=== PATIENT | female | born 1980 | race Hispanic/Latino ===

== ENCOUNTER 2018-10-05 07:04 | Day surgery (SDC) | payer BC ==
[2018-09-20 13:36] VITALS: BMI 32.8
[~2018-10-05 07:04] MED LIST: Bupivacaine HCl 0.5% PF (30 ml) Inj ONE; Iohexol 240 (50 ml) ONE; Lidocaine 2% MPF (5 ml) Inj ONE; MethylPREDNISolone Depo 40 mg/ml Inj ONE; ceFAZolin 1 gm in NS 2 GM/200 ML BAG IVPB ONE
[2018-10-05] MEDS ORDERED: Midazolam 2 MG/2 ML VIAL ONE (08:30)
[2018-10-05] MEDS ORDERED: Propofol 10 mg/ml Inj (20 ML) ONE ×2 (08:30→08:59)
[2018-10-05] MEDS ORDERED: Lidocaine 2% MPF (5 ml) Inj ONE ×2 (08:31)
[2018-10-05] MEDS ORDERED: MethylPREDNISolone Depo 40 mg/ml Inj ONE ×3 (08:32→09:12)
[2018-10-05] MEDS ORDERED: Lactated Ringer's 1,000 ML IV ONE (09:17)
[2018-10-05] MEDS ORDERED: Oxycodone/Acetaminophen 5/325 mg Tab ONE (10:08)
[2018-10-05] MEDS ORDERED: Oxycodone/Acetaminophen 5/325 mg Tab PO STA (10:13)
[2018-10-05 11:01] VITALS: RESP 18
[2018-10-05 11:55] VITALS: BP 105/53; PULSE 83; TEMP 97.7; O2SAT 99
--- NOTE | 2018-10-05 13:26 | RAD ---
Date of service: 10/05/2018 PROCEDURE: Intraoperative Fluoroscopy. HISTORY: Right HIP LABRAL TEAR, right GREAT TROCHANTER BURSITIS FINDINGS: Fluoroscopic assistance was provided for right hip and right greater trochanteric injection. Please refer to the operative report from TED Mathews, , MD GER.
--- NOTE | 2018-10-05 18:38 | PCM.SURG1 ---
Surgeon's Initial Post Op Note - Surgeon's Notes Surgeon: Landry Jorge MD Electronics Teacher: None Type of Anesthesia: IV Sedation, Local Pre-Operative Diagnosis: A. Right hip: #1 labral tear. #2 synovitis. #3 Greater Trochanteric Bursitis. #4 Abductor Tendonopathy. . B. Right knee: #1 synovitis. #2 hypertrophic symptomatic medial plica bands. #3 hypertrophic, inflamed infrapatellar fat pad. #4 medial meniscal tear (consistently on physi daysi exam, not seen on MRI) Operative Findings: A. Right hip: #1 labral tear. #2 synovitis. #3 Greater Trochanteric Bursitis. #4 Abductor Tendonopathy. . B. Right knee: #1 synovitis. #2 hypertrophic symptomatic medial plica bands. #3 hypertrophic, inflamed infrapatellar fat pad. #4 medial meniscal tear (consistently on physical exam, not seen on MRI) Post-Operative Diagnosis: A. Right hip: #1 labral tear. #2 synovitis. #3 Greater Trochanteric Bursitis. #4 Abductor Tendonopathy. . B. Right knee: #1 synovitis. #2 hypertrophic symptomatic medial plica bands. #3 hypertrophic, inflamed infrapatellar fat pad. #4 medial meniscal tear (consistently on physical exam, not seen on MRI) Operation Performed: A. Right hip : #1 Flouroscoic guided intra-articular injection. #2 Greater trochanteric bursitis injection. . B. Right knee: #1 Lateral compartment intra-articular injection. #2 Medial compartment intra- articular injection Specimen/Specimens Removed: Specimen= none. Complications= none. Implants= none. Injections= Each injection consisted of 5cc total volume= 2cc 2% Lidocaine w/o epi preservative free, 2cc 0.5% Marcaine w/o epi presevative free, 1cc Depomedrol preservatice free Estimated Blood Loss: EBL {In ML}: 1 Blood Products Given: N/A Drains Used: No Drains Post-Op Condition: Good Date of Surgery/Procedure: 10/05/18 Time of Surgery/Procedure: 09:00
--- NOTE | 2018-11-09 12:21 | OP ---
PROCEDURE DATE: 10/05/2018 PREOPERATIVE DIAGNOSES: PART A: Right hip: 1. Labral tear. 2. Synovitis. 3. Greater trochanteric bursitis. 4. Abductor tendinopathy. PART B: Right knee: 1. Synovitis. 2. Hypertrophic symptomatic medial plica bands. 3. Hypertrophic inflamed infrapatellar fat pad. 4. Medial meniscal tear. POSTOPERATIVE DIAGNOSES: PART A: Right hip: 1. Labral tear. 2. Synovitis. 3. Greater trochanteric bursitis. 4. Abductor tendinopathy. PAR B: Right knee: 1. Synovitis. 2. Hypertrophic symptomatic medial plica bands. 3. Hypertrophic inflamed infrapatellar fat pad. 4. Medial meniscal tear. PROCEDURE: Part A: Right hip 1. Fluoroscopic guided intraarticular cortisone mixture injection. 2. Fluoroscopic guided greater trochanteric bursa/abductor tendon, cortisone mixture injection. PART B: 1. Right knee lateral compartment intraarticular cortisone mixture injection under sedation. 2. Medial compartment intraarticular injection under sedation. SURGEON: Landry Jorge MD. CASH MANAGER: None. ANESTHESIA: IV sedation and local anesthetic placed at right hip by surgeon. SPECIMENS: None. COMPLICATIONS: None. IMPLANTS: None. ESTIMATED BLOOD LOSS: 1 mL. DRAINS: None. DISPOSITION: The patient was awakened from sedation and transferred to PACU in stable condition. INJECTION CONTENTS: Each injection administered, four in total, two for right hip and two for right knee consisted of 5 mL total volume = 2 mL 2% lidocaine without epinephrine, preservative free, 2 mL 0.5% Marcaine without epinephrine preservative free, 1 mL Depo-Medrol 40 mg preservative free. INDICATIONS FOR PROCEDURE: The patient is a 38-year-old female with a past medical history significant for hypothyroidism and anxiety who presents to the office for the first time under my care on 09/08/2018 with right hip and right knee pain, progressively worsening over the past three months of insidious onset. The pain became significant negative impact on her quality of life with difficulty with ambulation and going up and down stairs. MRI of the right hip done [facility] was read as: 1. No evidence of fracture AVN. 2. Tear of the anterior superior right acetabular labrum. 3. Mild greater trochanteric bursitis. 4. No signal abnormalities are seen within the sciatic nerve. Right knee MRI done at [facility] on 09/20/2018 was read as: 1. Mild soft tissue edema, small right knee joint effusion with a small medial and infrapatellar plica. No fracture or contusion pattern. 2. Mild patellar malalignment. No gross chondral defect. 3. No meniscal or ligament tear. On my review of the MRI, I felt that there was mild peripheral signal change in the medial meniscus. Physical examination of the right hip was consistent with a labral tear with pain at high flexion and internal rotation and pain in the groin. She also has tenderness to palpation at the greater trochanteric bursa and pain with abduction at the abductor insertion at the greater trochanter. Right knee examination was consistent with global boggy synovitis and medial plica bands as well as hypertrophic inflamed fat pad and consistent medial Elijah and signs of medial meniscus tear clinically despite the MRI read. We began to discuss the benefits of maximizing conservative treatment with multiple cortisone mixture injections. The cortisone mixture injections to the right hip would prove to be diagnostic as well as potentially therapeutic. If her pain is significantly improved and does not return, then she will not be indicated for arthroscopic hip surgery. If the injection does nothing to her groin pain, then again she will not be indicated for arthroscopic hip surgery. If the pain does improve and eventually does return localized to the groin, then she will be indicated for right hip arthroscopic labral repair and possible endoscopic greater trochanteric bursectomy depending on how much conservative treatment is performed between now and then to the greater trochanteric bursitis and abductor tendinopathy as there is no complete abductor tear to warrant immediate surgical intervention to the abductor at this point in time. Right knee was indicated for cortisone mixture injections as well. The patient has significant anxiety with any needle procedures and therefore requested being under sedation for the right hip injections under fluoro as well as the right knee injections. The risks, benefits and alternatives to the procedures discussed in length with the patient with the risks including not limited to infection, neurovascular damage, pain, inflammatory reactions, allergic reactions. After I answered all of her questions, they understood the risks and wished to proceed with the procedure. She was referred to primary care physician for preadmission testing and medical evaluation and the procedure was scheduled at [facility] on 10/05/2018. PROCEDURE IN DETAIL: The patient was identified in the preoperative holding area and the right hip and the right knee were marked for the procedure. As described above, the risks, benefits, and alternatives to both the procedures were discussed in length with the patient and informed consent was obtained for both the right hip and the right knee procedures. After a brief discussion with anesthesia staff, the patient was taken to the operating room, placed on a well padded operating room table with all bony prominences and superficial neurovascular structures well padded on the radiolucent table. IV sedation was administered. Final time-out was done with the surgeon, anesthesia staff, OR staff, all in agreement with the patient, procedure being done and the extremity being operated on. We began the procedure with the right hip treatment. The right hip was prepped and draped at the level of the intraarticular fluoroscopic guided injection as well as the greater trochanteric injection. Anatomic landmarks were mapped out identifying the ASIS and tip of the greater trochanter and then intersecting line was drawn between both with care taken to stay in the upper outer quadrant to minimize the chance of a neurovascular injury. Optimal entry point for the spinal needle was identified for the intraarticular injection. Fluoroscopic imaging was used to confirm the location. A 10 mL of 2% lidocaine without epinephrine preservative free were injected and infiltrated at the injection sites. Skin and soft tissue passed down to the superior head and neck junction of the head. Once local anesthetic took place, the spinal needle was advanced through the skin down to the superior head and neck junction of the right hip intraarticular space under fluoroscopic guidance. A 2 mL of mixture of 2% lidocaine with epinephrine preservative free and radio-opaque contrast were then administered into the intraarticular space confirming an intraarticular position of the spinal needle tip. A positive ring sign was demonstrated on fluoroscopic imaging confirming an intraarticular position of the needle tip. Excess contrast lidocaine mixture was re-aspirated and the 5 mL treatment injection was delivered in its entirety in the intraarticular position as a cortisone mixture injection intraarticular under fluoroscopic guidance to the right hip. Spinal needle was then removed after the injection was completed and the greater trochanteric injection was then carried out. With the help of fluoroscopic imaging, the spinal needle was advanced through the lateral skin at the proximal thigh down to the greater trochanter and the 5 mL injection was delivered in its entirety at the greater trochanteric bursa in the abductor tendons. Once the right hip treatment was completed, sterile dressings were applied and attention was then turned towards the right knee treatment under sedation. RIGHT KNEE INJECTION UNDER SEDATION: 1. Right knee was prepped and draped in standard sterile fashion. Final time-out was done with the surgeon, anesthesia staff, OR staff, all in agreement with the patient, procedure being done, extremity to be operated on. A 5 mL cortisone mixture injection as described above was delivered in its entirety through an anterior lateral portal approach at the soft spot at the anterolateral aspect of the knee in an intraarticular position. The injection was delivered without any resistance in an intraarticular position in its entirety. An anterior medial injection was also carried out to inject the medial compartment with a 5-mL cortisone mixture injection as described above in its contents. The injection was delivered in its entirety without resistance to the medial compartment in the intraarticular position. Sterile dressings were applied as well as a compressive Ran wrap to the right knee. The patient was then awakened from IV sedation and transferred to the PACU in stable condition. I personally examined the patient preop and postop with confirmation of the patient being neurovascularly intact to the right lower extremity, both preop and postop. She had dorsalis pedis and posterior tibialis pulses preop and postop. As far as her physical examination of the hip and knee go, she denied having any pain to the right hip, groin or greater trochanteric bursa or the right knee in recovery after the procedure compared to prior to the procedure where she had significant groin pain and greater trochanteric bursa pain and abductor pain as well as right knee medial, lateral and anterior pain that completely resolved with the injections. DISPOSITION: The patient will be discharged home once she is recovered from IV sedation. She was given a prescription for Vicoprofen for pain control. She will follow up with my office within two weeks and already has an appointment at [facility]. She will contact me directly if there are any questions or concerns. Landry Jorge MD
== END 2018-10-05 11:40 | disposition home or self-care (01) ==
LOC: C.SDS 07:04
PROVIDERS: ATTEND Student in an Organized Health Care Education/Training Program
DX: S73.191S Other sprain of right hip, sequela (principal); M67.861 Other specified disorders of synovium, right knee; M24.151 Other articular cartilage disorders, right hip; M65.851 Other synovitis and tenosynovitis, right thigh; M71.58 Other bursitis, not elsewhere classified, other site; M23.203 Derangement of unspecified medial meniscus due to old tear or injury, right knee
CPT/HCPCS: 20610; 77002; J2001; J2250; J2405; J2704; J3010; J7120